=== PATIENT | male | born 1960 | race Caucasian/White ===

== ENCOUNTER 2017-01-12 21:29 | Emergency (ER) | payer OTHER ==
[~2017-01-12] VITALS: Ht 177.8 cm; Wt 110.5 kg
[~2017-01-12 21:29] MED LIST: ANTIVERT25 MG PO; JANUMET 50/11 TABLET PO; LANTUS 3 M100 UNITS1 SQ; LIPITOR20 MG PO; NYQUIL D COLD295 ML PO; PANTOPRAZOLE SO40 MG PO; PEPTO BISMOL240 ML PO; PROTONIX40 MG PO; ROBITUSSIN100 MG/5 M PO; TYLENOL EXTRA500 MG PO; ZESTORETIC 20-1 EAC1 PO
[2017-01-12] MEDS ORDERED: DULOXETINE HCL30 MG PO (22:02)
[2017-01-12] MEDS ORDERED: CYMBALTA60 MG PO (22:02)
[2017-01-12 22:06] LABS: CARBON DIOXIDE (BICARBONATE) 27.4 MEQ/L (20-31); HEMATOCRIT 47.1 % (38.0-50.0); MCH 28.8 PG (29.0-34.0); MCHC 32.7 G/DL (30.0-36.0); MCV 88.2 FL (86-99); MEAN PLAT.VOLUME 10.6 uM^3 (9.0-12.4); NRBC (%) 0.3 /100 WBC (0-0); PLATELET COUNT 339 K/uL (156-360); RBC DIS.WIDTH-CV 12.1 % (11.8-14.6); RBC DIS.WIDTH-SD 39.3 % (39-53); RED BLOOD COUNT 5.34 M/uL (4.00-5.50); WHITE BLOOD COUNT 11.4 K/uL (4.1-10.2)
[2017-01-12 22:38] LABS: TROP-I INTERPRETATION NEGATIVE; TROPONIN-I < 0.01 ng/mL (0.0-0.30)
[2017-01-12 22:54] LABS: CHLORIDE 103 mEq/L (99-109); POTASSIUM 4.5 mEq/L (3.7-5.4); SODIUM 135 mEq/L (136-147)
[2017-01-12 22:56] LABS: GLUCOSE 278 mg/dL (70-99)
[2017-01-12 22:57] LABS: ANION GAP 9 MEQ/L (2-14)
[2017-01-12 22:58] LABS: TOTAL BILIRUBIN 0.6 mg/dL (0.0-1.0)
[2017-01-12 22:59] LABS: ALKALINE PHOSPHATASE 127 IU/L (3-129)
[2017-01-12 23:00] LABS: GFR ESTIMATE (CALCULATED) 51 mL/min/
[2017-01-12 23:01] LABS: UREA NITROGEN (BUN) 18 mg/dL (9-23)
[2017-01-12 23:02] LABS: TROP-I INTERPRETATION NEGATIVE; TROPONIN-I < 0.01 ng/mL (0.0-0.30)
[2017-01-12 23:35] LABS: ADD MIUA? YES; BILIRUBIN NEGATIVE; BLOOD NEGATIVE; COLOR YELLOW ((YELLOW)); GLUCOSE (STRIP) >=500; KETONES NEGATIVE; LEUKOCYTES NEGATIVE; NITRITE NEGATIVE; PROTEIN (STRIP) 100; SPECIFIC GRAVITY 1.009 (1.000-1.030); UROBILINOGEN 0.2 MG/DL (0.2-1.0)
[2017-01-12 23:51] LABS: SAMPLE HEMOLYSIS CHECK 0; SAMPLE ICTERIC CHECK 0; SAMPLE LIPEMIA CHECK 0
[2017-01-12 23:52] LABS: BACTERIA NONE SEEN /HPF; EPITHELIAL CELLS NONE SEEN /HPF; MUCUS NONE SEEN /LPF; RED BLOOD CELLS 0-5 /HPF (0-5); UCUL ADDED? NO; WHITE BLOOD CELLS 0-5 /HPF (0-5)
[2017-01-13 00:16] VITALS: BP 135/96
== END 2017-01-13 00:17 | disposition home or self-care (01) ==
LOC: EXP 21:29 → EME 21:29 → EXP 01-13 00:17
PROVIDERS: Physician Assistant
DX: S09.90XA Unspecified injury of head, initial encounter (principal); E11.65 Type 2 diabetes mellitus with hyperglycemia; R29.6 Repeated falls; W22.09XA Striking against other stationary object, initial encounter; Z79.4 Long term (current) use of insulin; H54.0 Blindness, both eyes; E78.5 Hyperlipidemia, unspecified; I10 Essential (primary) hypertension; K21.9 Gastro-esophageal reflux disease without esophagitis
CPT/HCPCS: 70450; 80053; 81003; 82010; 82803; 84484; 85027; 93005; 99281; 99284